=== PATIENT | female | born 1980 | race American Indian/Alaskan Native ===

== ENCOUNTER 2025-03-06 08:30 | Day surgery (SDC) | payer BC, SELFPAY ==
[2025-03-05 13:09] VITALS: BMI 26.9
[2025-03-06] VITALS (9 sets, daily range): BP systolic 109–141; BP diastolic 74–87; PULSE 54–61; RESP 10–19; TEMP 36.3–36.6; O2SAT 97–100; BMI 26.9
[2025-03-06] MEDS: SODIUM CHLORIDE 0.9% 500 ML 500 ML 20 ML IV (10:12)
[2025-03-06] MEDS: DiphenhydrAMINE INJ 50 MG/ML VIAL 25 MG IV (10:16)
[2025-03-06] MEDS: fentaNYL CIT INJ 50 mCg/ML AMP 2ML (ASD USE ONLY) IV (10:16)
[2025-03-06] MEDS: MIDAZOLAM INJ 1 MG/ML VIAL 2 ML (ASD USE ONLY) 2 MG IV (10:19)
--- NOTE | 2025-03-06 10:28 | SUR.PHASEII ---
received pt and report from FELICIANO Hall. Pt under moderate sedation, but is arousable to voice. vss. IV in place and intact, no s/s of redness or infiltration to site. abd soft on palpation, pt denies any nausea or pain.
--- NOTE | 2025-03-06 11:02 | SUR.PHASEII ---
d/c instructions given to pt and spouse both stated verbal understanding. IV removed with cath intact, pt tolerated well. no s/s of infiltration and redness noted to site. VSS.
== END 2025-03-06 11:02 | disposition home or self-care (01) ==
PROVIDERS: PCP Nurse Practitioner Family; Referring Provider Specialist; Visit Provider Specialist
PROC: (CPT 43239; principal; 2025-03-06 09:30)
DX: K20.90 Esophagitis, unspecified without bleeding (principal); K29.70 Gastritis, unspecified, without bleeding; K29.50 Unspecified chronic gastritis without bleeding; K31.89 Other diseases of stomach and duodenum
CPT/HCPCS: 43239; 81025; J1200; J2250; J3010; J7040

== ENCOUNTER → 2025-03-18 | Outpatient (CLI) | payer BC, SELFPAY ==
--- NOTE | 2025-03-18 11:58 | XR_ITS ---
MRI abdomen, without contrast. MRCP Date and time of exam: March 10, 2025 at 1226 hours INDICATIONS: Abdominal and back pain beginning 2018 Technique: Multiple axial and coronal images of the abdomen have been obtained with the Siemens 1.5T MRI scanner. Images obtained included T1 weighted transverse images, T2-weighted transverse images, T2-weighted transverse images fat-suppressed, T2 weighted haste fat suppressed transverse images, T1 weighted images, in and out of phase images, T2-weighted coronal images, breath hold, T2 weighted haze coronal images as well as T2 weighted coronal thick slab images, MRCP. Findings: Liver 16.1 cm no focal liver lesions Absent gallbladder Common bile duct 5 mm, no common bile duct stones No dilatation pancreatic duct No peripancreatic edema No hydronephrosis Spleen not enlarged No ascites Aorta normal size no abdominal lymphadenopathy IMPRESSION: No focal liver lesions No common hepatic or common bile Months Negative for pancreatitis
== END | disposition home or self-care (01) ==
LOC: SDIM 11:38
PROVIDERS: Referring Provider Specialist; Visit Provider Specialist
DX: R10.9 Unspecified abdominal pain (principal)
CPT/HCPCS: S8037; 74181